=== PATIENT | female | born 1945 | race Two or more races ===

== ENCOUNTER → 2017-08-01 | Outpatient (CLI) | payer SELFPAY ==
--- NOTE | 2017-08-01 11:42 | RADIOLOGY REPORT (SQ) ---
EXAM DESCRIPTION: KUB COMPLETED DATE/TIME: 08/01/2017 11:12 am REASON FOR STUDY: SLOW TRANSIT CONSTIPATION,LEFT LOWER QUADRANT PAIN K59.01 SLOW TRANSIT CONSTIPATI ON R10.32 LEFT LOWER QUADRANT PAIN COMPARISON: None. NUMBER OF VIEWS: One view. TECHNIQUE: Supine radiographic image of the abdomen acquired. LIMITATIONS: None. FINDINGS: BOWEL GAS PATTERN: Normal bowel gas pattern. No dilated loops. Moderate stool in the asce nding and transverse colon. CALCIFICATIONS: Atherosclerotic arterial vascular calcification. SOFT TISSUES: No gross mass or suggestion of organomegaly. HARDWARE: None in the abdomen. BONES: No acute fracture. No worrisome bone lesions. OTHER: No other significant finding. IMPRESSION: Moderate stool in the ascending and transverse colon. Otherwise unremarkable bowel gas pattern. TECHNICAL DOCUMENTATION: JOB ID: [id number] [employer]- All Rights Reserved
== END ==
LOC: OD 10:58
PROVIDERS: ATTEND Physician Assistant Surgical
DX: K59.01 Slow transit constipation (principal); R10.32 Left lower quadrant pain
CPT/HCPCS: 74018

== ENCOUNTER 2017-08-16 11:20 | Emergency (ER) | payer SELFPAY ==
--- NOTE | 2017-08-16 13:23 | ER Document Report ---
ED Medical Screen (RME) - General Chief Complaint: Constipation Stated Complaint: DIZZINESS Time Seen by Provider: 08/16/17 13:16 Mode of Arrival: Ambulatory Information source: Patient Notes: 72 yo htn, non dm, female visiting for 2 more months from [place] is c/o not being able to have BM. Last BM 2 days ago. Has already seen [facility] 1 month ago for the same problem, taking lactulose 15 ml po bid and having either small balls, or diarrhea with the medication. Today she has left side abdominal pain and at the anus which she thinks is closing up ( previous hemorrhoid surgery). Not eating well because she feels fulll. Today she feels like a stool ball will not come out. Breast cyst. TRAVEL OUTSIDE OF THE [place] IN LAST 30 DAYS: No - Related Data Allergies/Adverse Reactions: No Known Allergies Allergy (Unverified 08/16/17 11:24) Physical Exam - Vital signs Vitals: Temp Pulse Resp BP Pulse Ox 97.6 F 60 16 150/70 H 97 08/16/17 11:39 08/16/17 11:39 08/16/17 11:39 08/16/17 11:39 08/16/17 11:39 Course - Vital Signs Vital signs: Temp Pulse Resp BP Pulse Ox 97.6 F 60 16 150/70 H 97 08/16/17 11:39 08/16/17 11:39 08/16/17 11:39 08/16/17 11:39 08/16/17 11:39
[2017-08-16 14:14] LABS: ABSOLUTE BASOPHILS # (AUTO) 0.1 10^3/uL (0.0-0.2); ABSOLUTE EOSINOPHILS # (AUTO) 0.2 10^3/uL (0.0-0.6); ABSOLUTE LYMPHOCYTES (AUTO) 3.4 10^3/uL (0.5-4.7); ABSOLUTE MONOCYTES (AUTO) 0.5 10^3/uL (0.1-1.4); ABSOLUTE NEUT (AUTO) 4.2 10^3/uL (1.7-8.2); BASOPHILS % (AUTO) 0.7 % (0-2); HEMATOCRIT 40.8 % (36.0-47.0); HEMOGLOBIN 14.4 g/dL (12.0-15.5); LYMPHOCYTES % (AUTO) 40.8 % (13-45); MEAN CORPUSCULAR HEMOGLOBIN 30.5 pg (27.0-33.4); MEAN CORPUSCULAR HGB CONC 35.3 g/dL (32.0-36.0); MEAN CORPUSCULAR VOLUME 87 fl (80-97); MONOCYTES % (AUTO) 6.3 % (3-13); PLATELET COUNT 369 10^3/uL (150-450); RED BLOOD COUNT 4.72 10^6/uL (3.72-5.28); RED CELL DISTRIBUTION WIDTH 13.6 % (11.5-14.0); SEGMENTED NEUTROPHILS % (AUTO) 50.2 % (42-78); TOTAL CELLS COUNTED % (AUTO) 100 %; WHITE BLOOD COUNT 8.3 10^3/uL (4.0-10.5)
[2017-08-16 14:18] LABS: APPEARANCE,URINE CLEAR; BILIRUBIN,URINE NEGATIVE (NEGATIVE); COLOR,URINE STRAW; GLUCOSE, URINE NEGATIVE (NEGATIVE); KETONES,URINE NEGATIVE (NEGATIVE); LEUKOCYTE ESTERASE,URINE NEGATIVE (NEGATIVE); NITRITE,URINE NEGATIVE (NEGATIVE); PROTEIN,URINE NEGATIVE (NEGATIVE); URINE SPECIFIC GRAVITY 1.002; UROBILINOGEN,URINE NEGATIVE mg/dL (<2.0)
[2017-08-16 14:32] LABS: ALANINE AMINOTRANSFERASE 60 U/L (9-52); ALBUMIN 4.7 g/dL (3.5-5.0); ALKALINE PHOSPHATASE 92 U/L (38-126); ANION GAP 11 (5-19); ASPARTATE AMINO TRANSFERASE 40 U/L (14-36); BILIRUBIN,DIRECT 0.2 mg/dL (0.0-0.4); BILIRUBIN,TOTAL 0.6 mg/dL (0.2-1.3); BLOOD UREA NITROGEN 13 mg/dL (7-20); CALCIUM 9.9 mg/dL (8.4-10.2); CARBON DIOXIDE 24 mmol/L (22-30); CHLORIDE 98 mmol/L (98-107); GLUCOSE 84 mg/dL (75-110); POTASSIUM 4.2 mmol/L (3.6-5.0); SODIUM 132.9 mmol/L (137-145); TOTAL PROTEIN 7.7 g/dL (6.3-8.2)
--- NOTE | 2017-08-16 15:11 | ER Document Report ---
ED General - General Chief Complaint: Constipation Stated Complaint: DIZZINESS Time Seen by Provider: 08/16/17 13:16 Mode of Arrival: Ambulatory Notes: 72-year-old [place]an-speaking only patient to the emergency department with the chief complaint of chronic constipation. Has some uncomfortable feeling in the left lower quadrant. No blood. Some generalized weakness at times. Had a colonoscopy less than a year ago. Had a hemorrhoid repair less than a year ago as well. TRAVEL OUTSIDE OF THE [place] IN LAST 30 DAYS: No - HPI Onset/Duration: Gradual Quality of pain: Achy Severity: Mild Pain Level: 1 Associated symptoms: None - Related Data Allergies/Adverse Reactions: No Known Allergies Allergy (Unverified 08/16/17 11:24) Past Medical History - General Information source: Patient - Social History Smoking Status: Never Smoker Chew tobacco use (# tins/day): No Frequency of alcohol use: Rare Drug Abuse: None Lives with: Family Family History: Reviewed & Not Pertinent Patient has suicidal ideation: No Patient has homicidal ideation: No - Past Medical History Cardiac Medical History: Reports: Hx Hypertension Endocrine Medical History: Reports: Hx Diabetes Mellitus Type 2 Renal/ Medical History: Denies: Hx Peritoneal Dialysis Review of Systems - Review of Systems Constitutional: Weakness. denies: Fever, Malaise EENT: No symptoms reported Cardiovascular: No symptoms reported Respiratory: No symptoms reported Gastrointestinal: Abdominal pain, Constipation Genitourinary: No symptoms reported Female Genitourinary: No symptoms reported Musculoskeletal: No symptoms reported Skin: No symptoms reported Hematologic/Lymphatic: No symptoms reported Neurological/Psychological: No symptoms reported Physical Exam - Vital signs Vitals: Temp Pulse Resp BP Pulse Ox 97.6 F 60 16 150/70 H 97 08/16/17 11:39 08/16/17 11:39 08/16/17 11:39 08/16/17 11:39 08/16/17 11:39 Interpretation: Normal - General General appearance: Appears well, Alert - HEENT Head: Normocephalic, Atraumatic Eyes: Normal Pupils: PERRL - Respiratory Respiratory status: No respiratory distress Chest status: Nontender Breath sounds: Normal Chest palpation: Normal - Cardiovascular Rhythm: Regular Heart sounds: Normal auscultation Murmur: No - Abdominal Inspection: Normal Distension: No distension Bowel sounds: Normal Tenderness: Nontender Organomegaly: No organomegaly - Rectal Notes: No obvious no obvious thrombus of external hemorrhoids. - Back Back: Normal, Nontender - Extremities General upper extremity: Normal inspection, Nontender, Normal color, Normal ROM , Normal temperature General lower extremity: Normal inspection, Nontender, Normal color, Normal ROM , Normal temperature, Normal weight bearing. No: Anthony's sign - Neurological Neuro grossly intact: Yes Cognition: Normal Orientation: AAOx4 Stormy Coma Scale Eye Opening: Spontaneous [place] Coma Scale Verbal: Oriented Stormy Coma Scale Motor: Obeys Commands [place] Coma Scale Total: 15 Speech: Normal Motor strength normal: LUE, RUE, LLE, RLE Sensory: Normal - Psychological Associated symptoms: Normal affect, Normal mood - Skin Skin Temperature: Warm Skin Moisture: Dry Skin Color: Normal Course - Re-evaluation Re-evalutation: 08/16/17 19:32 Awaiting results from the CT abdomen and pelvis. I did add the oral contrast to the study based on the fact the patient has been having these symptoms for quite some time and the surgeon that I spoke with earlier requested oral contrast on all patients with abdominal complaints. This has added to the length of stay. 08/16/17 20:01 Labs are unremarkable. CT scan unremarkable. Comfortable at this time discharging. Explained to the patient with the aid of an certified ethical hacker as well. 08/16/17 20:01 Laboratory 08/16/17 08/16/17 08/16/17 13:59 13:59 13:59 WBC 8.3 RBC 4.72 Hgb 14.4 Hct 40.8 MCV 87 MCH 30.5 MCHC 35.3 RDW 13.6 Plt Count 369 Seg Neutrophils % 50.2 Lymphocytes % 40.8 Monocytes % 6.3 Eosinophils % 2.0 Basophils % 0.7 Absolute Neutrophils 4.2 Absolute Lymphocytes 3.4 Absolute Monocytes 0.5 Absolute Eosinophils 0.2 Absolute Basophils 0.1 Sodium 132.9 L Potassium 4.2 Chloride 98 Carbon Dioxide 24 Anion Gap 11 BUN 13 Creatinine 0.63 Est GFR ( Amer) > 60 Est GFR (Non-Af Amer) > 60 Glucose 84 Calcium 9.9 Total Bilirubin 0.6 Direct Bilirubin 0.2 Neonat Total Bilirubin Not Reportable Neonat Direct Bilirubin Not Reportable Neonat Indirect Bili Not Reportable AST 40 H ALT 60 H Alkaline Phosphatase 92 Total Protein 7.7 Albumin 4.7 Urine Color STRAW Urine Appearance CLEAR Urine pH 6.0 Ur Specific [place] 1.002 Urine Protein NEGATIVE Urine Glucose (UA) NEGATIVE Urine Ketones NEGATIVE Urine Blood NEGATIVE Urine Nitrite NEGATIVE Urine Bilirubin NEGATIVE Urine Urobilinogen NEGATIVE Ur Leukocyte Esterase NEGATIVE Urine WBC (Auto) 0 Urine RBC (Auto) 0 U Hyaline Cast (Auto) 1 Squamous Epi Cells Auto <1 Urine Mucus (Auto) RARE Urine Ascorbic Acid NEGATIVE Abdomen/Pelvis CT 08/16/17 00:00 IMPRESSION: NO ACUTE FINDING IN THE ABDOMEN OR PELVIS ON CT SCAN WITH IV CONTRAST. - Vital Signs Vital signs: Temp Pulse Resp BP Pulse Ox 97.7 F 63 20 159/70 H 97 08/16/17 19:27 08/16/17 19:27 08/16/17 19:27 08/16/17 19:27 08/16/17 19:27 - Laboratory Result Diagrams: 08/16/17 13:59 08/16/17 13:59 Laboratory results interpreted by me: 08/16/17 13:59 Sodium 132.9 L AST 40 H ALT 60 H Discharge - Discharge Clinical Impression: Chronic constipation Abdominal pain Qualifiers: Abdominal location: left lower quadrant Qualified Code(s): R10.32 - Left lower quadrant pain Disposition: HOME, SELF-CARE Instructions: Constipation ([facility]), Laxative ([facility]), Abdominal Pain ([facility]) Additional Instructions: Please return immediately if symptoms are getting worse or no better within the next 24 hours. Prescriptions: Docusate Sodium 100 mg PO BID 30 Days #60 capsule Polyethylene Glycol 3350 [Miralax] 238 gm PO DAILY 30 Days #1 powder Print Language: [place]an
--- NOTE | 2017-08-16 19:38 | RADIOLOGY REPORT (SQ) ---
EXAM DESCRIPTION: CT ABD/PELVIS WITH IV ORAL COMPLETED DATE/TIME: 08/16/2017 7:18 pm REASON FOR STUDY: llq abd pain COMPARISON: None. TECHNIQUE: CT scan of the abdomen and pelvis performed using helical scanning technique with dynamic intravenous contrast injection. No oral contrast. Images reviewed with lung, soft tissue, and bone windows. Reconstructed coronal and sagittal MPR images reviewed. Delayed images for evaluation of the urinary system also acquired. All images stored on PACS. All CT scanners at this facility use dose modulation, iterative reconstruction, and/or weight based d osing when appropriate to reduce radiation dose to as low as reasonably achievable (ALARA). [facility]: Dose Right [facility]: CareDose [facility]: Dose Right [facility]: Teradose 4D [facility]: Aktana CONTRAST TYPE AND DOSE: contrast/concentration: Isovue 370.00 mg/ml; Total Contrast Delivered: 64.0 ml; Total Saline Delivered: 40.0 ml RENAL FUNCTION: GFR > 60. RADIATION DOSE: CT Rad equipment meets quality standard of care and radiation dose reduction techniq ues were employed. CTDIvol: 5.4 - 7.2 mGy. DLP: 942 mGy-cm.. LIMITATIONS: None. FINDINGS: LOWER CHEST: No significant findings. No infiltrates. Tiny calcified granulomas left lung . LIVER: Normal size. No masses. No dilated ducts. SPLEEN: Normal size. No focal lesions. PANCREAS: No masses. No significant calcifications. No adjacent inflammation or peripancreatic fluid collections. Pancreatic duct not dilated. GALLBLADDER: No identified stones by CT criteria. No inflammatory changes to suggest cholecystitis. ADRENAL GLANDS: No significant masses or asymmetry. RIGHT KIDNEY AND URETER: No solid masses. Small cysts. No significant calcifications. No hydronep hrosis or hydroureter. LEFT KIDNEY AND URETER: No solid masses. No significant calcifications. No hydronephrosis or hydr oureter. AORTA AND VESSELS: No aneurysm. No dissection. Renal arteries, SMA, celiac without stenosis. RETROPERITONEUM: No retroperitoneal adenopathy, hemorrhage or masses. BOWEL AND PERITONEAL CAVITY: No masses or inflammatory changes. No free fluid or peritoneal masses. APPENDIX: Normal. PELVIS: No mass. No free fluid. Normal bladder. ABDOMINAL WALL: No masses. No hernias. BONES: No significant or acute findings. OTHER: No other significant finding. IMPRESSION: NO ACUTE FINDING IN THE ABDOMEN OR PELVIS ON CT SCAN WITH IV CONTRAST. TECHNICAL DOCUMENTATION: JOB ID: [id number] Quality ID # [id number]: Final reports with documentation of one or more dose reduction techniques (e.g., Au tomated exposure control, adjustment of the mA and/or kV according to patient size, use of iterative reconstruction technique) 2010 [email or web address]- All Rights Reserved
[2017-08-16 20:42] VITALS: BP 177/64
== END 2017-08-16 20:43 | disposition home or self-care (01) ==
LOC: ER 11:20
DX: K59.09 Other constipation (principal); R10.32 Left lower quadrant pain; R10.12 Left upper quadrant pain; R42 Dizziness and giddiness; I10 Essential (primary) hypertension; E11.9 Type 2 diabetes mellitus without complications
CPT/HCPCS: 36415; 74177; 80053; 81001; 85025; 87086; 99284